=== PATIENT | female | born 1970 | race Caucasian/White ===

== ENCOUNTER 2021-03-18 00:18 | Day surgery (SDC) | payer OTHER, SELFPAY ==
[2021-03-14 12:56] VITALS: BMI 25.1
[2021-03-18] VITALS (7 sets, daily range): BP systolic 115–168; BP diastolic 66–84; PULSE 76–104; RESP 13–16; TEMP 36.4–36.8; O2SAT 96–100
[2021-03-18] MEDS: LACTATED RINGERS 1,000 ML 30 ML IV CONT ×2 (10:26→13:35)
--- NOTE | 2021-03-18 11:16 | WPDANESEPPF ---
Anes - Initial Pre Proc Eval Procedure: Operation Date: 03/18/21 11:30 Proposed Procedures p Bilateral Breast Implant Exchange with Capsulectomy - Robert Liriano MD Date/Time: 03/18/21 11:16 Surgeon: Robert Liriano MD Pre Op Diagnosis: capsular contracture Patient Data Age: 51 Gender: F Height: 1.7 m Weight: 75 kg Last Vital Signs Temp 98.2 F 03/18/21 10:23 Pulse 76 03/18/21 10:23 Resp 16 03/18/21 10:23 BP 168/76 H 03/18/21 10:23 Pulse Ox 99 03/18/21 10:23 Allergies Allergy/AdvReac Type Severity Reaction Status Date / Time No Known Allergies Allergy Unverified 03/18/21 10:21 Home Medications Medication Instructions Recorded Confirmed Type omeprazole 20 mg capsule,delayed 20 mg PO DAILY 12/09/20 03/18/21 History release docusate sodium 100 mg capsule 100 mg PO DAILY #14 cap 02/24/21 03/18/21 Rx ondansetron HCl 4 mg tablet 4 mg PO Q8H #21 tablet 02/24/21 03/18/21 Rx hydrocodone 5 mg-acetaminophen 325 1 tablet PO Q6H PRN #15 tablet 02/27/21 03/18/21 Rx mg tablet Patient hx anesthesia problems: post op nausea/vomiting Family hx anesthesia problems: none PMFSH Past Medical History Medical History (Updated 03/18/21 @ 11:16 by Surinder Eagle MD) GERD (gastroesophageal reflux disease) Surgical History Surgical History History of hysterectomy Family History Family History Mother Hypertension Diabetes mellitus Breast cancer Father Arrhythmia Social History Social History Smoking status: Never smoker Second hand tobacco smoke exposure: No Alcohol intake: current Drinks per week: 3 Substance use: never Substance use type: does not use Living arrangements: with family Spiritual care concerns: No Anes - Eval Final PreProcedure Day of Procedure 03/18/21 11:16 Patient weight: overweight Heart: regular rate and rhythm Lungs: clear to auscultation Airway: Mallampati scale class II Neurological: alert and oriented Last oral intake: >/= 8 hours ASA classification: II Emergent: no Anesthetic plan: proceed Anesthesia type and monitoring: general LMA and standard monitoring Informed Consent: The patient's anesthetic plan and its attendant risks and benefits were discussed with the patient/family/POA. Questions were solicited and answers provided to the satisfaction of the patient/family/POA.
--- NOTE | 2021-03-18 11:20 | WPDHPUPDATE1 ---
History and Physical Update Update Date/Time: 03/18/21 11:20 History and Physical has been reviewed, including an updated exam of the patient. There are NO changes in the patient's condition. Risks, benefits, and alternatives have been discussed and questions answered. Patient agrees to proceed with procedure.
[2021-03-18] MEDS: SCOPOLAMINE 1.5 MG PATCH TRANSDERM (11:36)
--- NOTE | 2021-03-18 11:56 | W.PM.PROC2 ---
Procedure Note - Detailed Date of Procedure 03/18/21 Pre-op Diagnosis capsular contracture Post-op Diagnosis same Procedure Performed Bilateral breast implant exchange Surgeon Robert Liriano MD Anesthesia general Findings Implants removed: Bilateral smooth, subglandular, saline, 270cc filled to ?? New Implants: Bilateral Blanco Jenkins SoftTouch 375cc Right- SSM-375 SN [id number] Left - SSM-[id number] SN [id number] Description of Procedure Preoperatively the risks, benefits, alternatives were discussed in extensive detail. I wanted her to be very realistic about the risks involved as as expectations. Discussed how I can actually her worse. Discussed the aftercare. We discussed what monitor for. All questions were answered to her satisfaction consent obtained. Patient was taken to the operating room placed supine on the operating room table. Anesthesia provided by anesthesiology and prepped and draped in the standard sterile fashion. Surgical time-out was taken. 1% lidocaine and 0.25% Marcaine with epinephrine was used to provide a field block. Fifteen blade used to excise the previous IMF scar. I continued down on both sides until the capsule was identified removed the majority of the capsule. See findings above. No worriseome features. She declined sending capsules if implants were smooth (previously discussed risks, benefits, alternatives of this, she was well informed of risks and declines sending them). I then copiously irrigated with 3 L of saline solution on TUR tubing. Verified strict hemostasis. I copiously irrigated with triple antibiotic Betadine solution. Wash my gloves. Throughout the procedure we had Tegaderm nipple Lopez. Using a Stanley funnel the implant was introduced into the pocket and closed using 2-0 Vicryl followed by 3-0 Monocryl in a running subcuticular 4-0 Monocryl and finally tissue glue. Dressings were placed. Patient was woken taken to the PACU without difficulty. All instrument sponge counts were correct at the end the case. Estimated Blood Loss 20 Drains No Packing No Pathology none sent Complications No immediate complications Condition stable Disposition PACU
[2021-03-18] MEDS: ceFAZolin 2 GM/D5W 50 ML 2 GM/50 ML BAG IVPB (12:20)
[2021-03-18] MEDS: TRANEXAMIC ACID 1,000MG/ISO100 1,000 MG/100 ML BAG 200 MG IVPB (12:45)
[2021-03-18] MEDS: fentaNYL CITRATE INJ (*CRX) 100 MCG/2 ML VIAL 25 MCG IV PUSH ×2 (13:42→14:00)
[2021-03-18] MEDS: oxyCODONE HCL (*CRX) 5 MG TAB IR PO (14:21)
== END 2021-03-18 15:18 | disposition home or self-care (01) ==
PROVIDERS: Visit Provider Surgery Plastic and Reconstructive Surgery
PROC: (CPT 19342; principal; 2021-03-18 11:30)
DX: T85.44XA Capsular contracture of breast implant, initial encounter (principal); X58.XXXA Exposure to other specified factors, initial encounter; K21.9 Gastro-esophageal reflux disease without esophagitis; E66.3 Overweight; Z68.25 Body mass index [BMI] 25.0-25.9, adult; Z79.899 Other long term (current) drug therapy
CPT/HCPCS: 19342; A9270; J0690; J1100; J1170; J1580; J2250; J2270; J2405; J2704; J3010; J7120